=== PATIENT | male | born 1995 | race Caucasian/White ===

== ENCOUNTER 2020-07-21 08:40 | Outpatient (RCR) | payer OTHER, SELFPAY | END 2020-07-23 23:59 | LOC: EMPH 08:40 | PROVIDERS: Visit Provider Family Medicine Geriatric Medicine | DX: Z11.59 Encounter for screening for other viral diseases (principal) | CPT/HCPCS: 87635; U0003 ==

== ENCOUNTER 2020-08-21 08:28 | Outpatient (RCR) | payer OTHER, SELFPAY | END 2020-08-23 23:59 | LOC: EMPH 08:28 | PROVIDERS: Visit Provider Family Medicine Geriatric Medicine | DX: Z03.818 Encounter for observation for suspected exposure to other biological agents ruled out (principal) | CPT/HCPCS: 87426 ==

== ENCOUNTER 2020-09-01 11:20 | Outpatient (RCR) | payer OTHER, SELFPAY | END 2020-09-22 23:59 | LOC: EMPH 11:20 | PROVIDERS: Visit Provider Family Medicine Geriatric Medicine | DX: Z03.818 Encounter for observation for suspected exposure to other biological agents ruled out (principal) | CPT/HCPCS: 87426 ==

== ENCOUNTER → 2020-09-20 15:17 | Outpatient (REF) | payer OTHER, SELFPAY | LOC: EMPH 15:17 | PROVIDERS: Referring Provider Internal Medicine Infectious Disease; Visit Provider Internal Medicine Infectious Disease | DX: Z20.828 Contact with and (suspected) exposure to other viral communicable diseases (principal) | CPT/HCPCS: 87633; 87635; U0002 ==

== ENCOUNTER 2020-10-02 13:22 | Outpatient (RCR) | payer OTHER, SELFPAY | END 2020-10-23 23:59 | LOC: EMPH 13:22 | PROVIDERS: Referring Provider Family Medicine Geriatric Medicine; Visit Provider Family Medicine Geriatric Medicine | DX: Z03.818 Encounter for observation for suspected exposure to other biological agents ruled out (principal) | CPT/HCPCS: 87426 ==

== ENCOUNTER 2020-10-13 00:51 | Emergency (ER) | payer OTHER, SELFPAY ==
[2020-10-13 00:51] VITALS: BP 161/76; PULSE 117; RESP 15; TEMP 37.5; O2SAT 97; BMI 26.6
[2020-10-13 00:56] VITALS: BP 157/66; PULSE 115; RESP 17; TEMP 37.5; O2SAT 98
--- NOTE | 2020-10-13 01:19 | EKG12_ITS ---
Test Reason : CP Blood Pressure : / mmHG Vent. Rate : 109 BPM Atrial Rate : 109 BPM P-R Int : 134 ms QRS Dur : 106 ms QT Int : 336 ms P-R-T Axes : 050 030 023 degrees QTc Int : 452 ms Sinus tachycardia Incomplete right bundle branch block Confirmed by MARK EMERY, RADHA ([id number]), editorial assistant SEVERO MATUTE ([id number]) on 10/15/2020 11:10:47 AM Referred By: SHARAN Confirmed By:RADHA FLORES MD
--- NOTE | 2020-10-13 01:22 | ED.RN ---
no old ekgs on flile
--- NOTE | 2020-10-13 01:25 | ED.DCSUM_ITS ---
- ER Visit Summary Date of Service: 10/13/20 Chief Complaint: Chills, chest pain History of Present Illness: The patient is a 25 M with no primary care physician. 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 He ports that he felt fine when he came to work [employer] Approximately 10 PM he deve loped chills and myalgias. States that an hour later he developed a an aching left-sided chest pain is 3-10 severity currently and at worst. There is no change with exertion, movement, or deep breaths. Nothing seems to make this better either. He is also already taken Tylenol. Patient denies fever or cough. No abdominal pain, nausea, vomiting, or diarrhea. No dysuria or frequency. He reports he has a headache that is 2 out of 10 severity. Is has a history of similar headaches. Patient has no personal or family history of DVT. No recent travel. No calf pain or ankle swelling. Physical Examination: Vitals: 99.5, 161/76, 117, 15, 97% room air which is not hypoxic. General: Well-nourished and well-developed. Head: Normocephalic atraumatic. Neck: Supple, no lymphadenopathy. No JVD. Nontender. Cardiovascular: Regular rate and rhythm. No murmurs. Respiratory: No respiratory distress. Clear to auscultation bilaterally. Abdominal: Soft, nontender, nondistended, normal bowel sounds. No guarding, rebound, or peritoneal signs. Back: Nontender. Extremities: Nontender, no edema. Skin: Normal color, no rash. Neurologic: Alert and oriented ?3. Cranial nerves II through XII are intact. Normal strength and sensation. Psych: Normal affect. Test Results: EKG is sinus tachycardia at 109 with a T wave inversion in lead III and nonspecific ST changes. There is no old EKG for comparison. CBC shows segmented feels 75 lymphocytes 13. Chem-7 is normal. Troponin is negative. D- dimer is negative. TSH is 0.58. Respiratory panel is negative. COVID-19 RT- PCR is negative. Clinical Impression(s) from Imaging Studies Chest X-Ray 10/13/20 01:40 IMPRESSION: Mild right basilar airspace opacity, nonspecific but concerning for infection. at 0156 Reported and signed by: Su Potts MD Electronically Signed: Su Potts MD at 1:55 EST Tel , Service support , Emergency Department Course and Treatment: Patient had an IV placed. Is given liter normal saline. He is given Toradol IV. He is resting more comfortably. Treatment Plan: Had a prolonged discussion with the patient that this may represent a COVID-19 infection. He is instructed to quarantine. He will be placed on doxycycline due to the questionable right lower lobe infiltrate. Follow-up with his primary care physician in 10-14 days for another exam. Return to the emergency department for any worsening symptoms. Disposition: To home in improved and stable condition. Impression: 1. Atypical chest pain. 2. URI, possible COVID-19 infection. This note was generated with [employer] dictation software. It may contain incorrect words, spelling, and punctuation that were not noted in review of the chart prior to signing ED Disposition - Plan for ED Patient: Disposition: Home or Assisted Living Instructions: ED Upper Resp Infec Abx Tx Prescriptions: Doxycycline 100 mg PO BID #14 cap Prescription Printed Referrals: Doctor,Your [STAFF PHYSICIAN] - 10-14 Days if not better
[2020-10-13] MEDS: Ketorolac 15 MG/ML Vial IV (01:30)
[2020-10-13] MEDS: 0.9% Normal Saline 1,000 ML 999 ML IV (01:32)
--- NOTE | 2020-10-13 01:40 | RAD_ITS ---
HISTORY: body aches, chills, chest pain starting this evening. ADDITIONAL HISTORY: None provided. EXAMINATION/TECHNIQUE: XR Chest 1 View AP/PA Number of images including paperwork: 2 COMPARISON: None FINDINGS: LUNGS AND PLEURA: Small area of airspace opacity at the right base. No dense consolidation. No sizable pleural effusion. No pneumothorax. CARDIAC SILHOUETTE: Unremarkable. MEDIASTINUM AND [place]: Unremarkable. UPPER ABDOMEN: Unremarkable. SKELETON AND SOFT TISSUES: No acute skeletal findings. OTHER DEVICES AND HARDWARE: None. RAD/Chest 1 View (Portable) IMPRESSION: Mild right basilar airspace opacity, nonspecific but concerning for infection. at 0156 Reported and signed by: Su Potts MD Electronically Signed: Su Potts MD at 1:55 EST Tel , Service support ,
[2020-10-13 01:47] LABS: Absolute Lymphocyte Count 0.82 X10^3/uL (0.83-4.51); Absolute Neutrophil Count 4.6 X10^3/uL (2.0-7.7); Basophil# 0.04 X10^3/uL; Basophil% 0.6 % (0-1); Eosinophil# 0.08 X10^3/uL; Eosinophils% 1.3 % (0-5); Hematocrit 42.2 % (40-54); Hemoglobin 14.6 g/dL (13.0-16.5); Lymphocyte # 0.82 X10^3/ul (4.0); Lymphocyte % 13.3 % (19-41); Mean Corp Hgb Conc 34.6 g/dL (32-36); Mean Corpuscular Hgb 31.1 pg (27.0-32.0); Mean Platelet Vol. 12.4 fl (6.2-12.0); Monocyte# 0.62 X10^3/uL; Monocyte% 10.1 % (0-10); NRBC Flagged by Analyzer 0 % (0-5); Neutrophil # 4.59 X10^3/uL (2.7-7.7); Neutrophil % 74.5 % (47-70); Platelet Count 191 K/mm3 (150-450); RBC Distribution Width CV 11.7 % (11.6-14.6); Red Blood Count 4.69 M/mm3 (4.6-6.2); White Blood Count 6.2 K/mm3 (4.4-11.0)
[2020-10-13 01:56] VITALS: BP 111/59; PULSE 99; RESP 18; TEMP 37.4; O2SAT 99
[2020-10-13 01:58] LABS: D-Dimer Quantitative (DVT/PE) <= 0.27 FEU/ug/m (0.27-0.49)
[2020-10-13 02:10] LABS: Anion Gap 6 (5-15); BUN 14 mg/dL (7-18); BUN/Creat Ratio 12.5 RATIO (10-20); Chloride 103 mmol/L (98-107); Creatinine, Serum 1.12 mg/dL (0.70-1.30); EST Glomerular Filtration Rate 86 mL/min (>60); Est Glom Filt Rate - Afr Amer 104 mL/min (>60); Estimated Creatinine Clearance 99.24 ml/min; Glucose 98 mg/dL (74-106); Potassium 3.7 mmol/L (3.5-5.1); Sodium Level 136 mmol/L (136-145); Thyroid Stim Hormone (TSH) 0.58 uIU/mL (0.358-3.74)
[2020-10-13 02:24] VITALS: BP 115/57; PULSE 95; RESP 17; TEMP 37.1; O2SAT 97
== END 2020-10-13 02:37 | disposition home or self-care (01) ==
LOC: ED 01:39
PROVIDERS: Emergency Provider Emergency Medicine
DX: R07.89 Other chest pain (principal); J06.9 Acute upper respiratory infection, unspecified; J45.909 Unspecified asthma, uncomplicated
CPT/HCPCS: 71045; 80048; 84443; 84484; 85025; 85379; 87633; 87635; 93005; 96361; 96374; 99284; J7030; A4216; U0002

== ENCOUNTER → 2020-10-20 10:14 | Outpatient (CLI) | payer OTHER, SELFPAY ==
[2020-10-20 09:55] VITALS: BMI 28.3
--- NOTE | 2020-10-20 10:17 | RAD_ITS ---
STUDY: X-RAY CHEST REASON FOR EXAM: Male, 25 years old. COUGH, RIGHT SIDED PAIN ON INSPIRATION -- HAS BEEN ON ANTIBIOTICS x1 WEEK TECHNIQUE: Frontal and lateral views of the chest. COMPARISON: None. FINDINGS: Ill-defined airspace opacities are seen in the right lower lobe suggesting pneumonia. There is no demonstrated pleural abnormality. Normal size heart. Normal mediastinum and jarrett. Normal visualized pulmonary arteries. Normal visualized aortic arch and descending thoracic aorta. Normal visualized thoracic spine. Normal visualized ribs, clavicles, and shoulders. There is no demonstrated abnormality of the visualized soft tissue structures of the upper abdomen. RAD/Chest PA and Lateral IMPRESSION: Right lower lobe pneumonia. Electronically Signed: Lg Lara, at 11:16 EST Tel , Service support ,
== END ==
PROVIDERS: Referring Provider Physician Assistant Surgical; Visit Provider Physician Assistant Surgical
DX: Z20.828 Contact with and (suspected) exposure to other viral communicable diseases (principal)
CPT/HCPCS: 71046

== ENCOUNTER 2021-04-21 19:50 | Outpatient (RCR) | payer OTHER, SELFPAY ==
[2020-10-20 09:55] VITALS: BMI 28.3
== END 2021-04-22 23:59 ==
LOC: EMPH 19:50
PROVIDERS: Visit Provider Family Medicine Geriatric Medicine
DX: Z03.818 Encounter for observation for suspected exposure to other biological agents ruled out (principal)
CPT/HCPCS: 87426

== ENCOUNTER 2021-05-22 08:56 | Outpatient (RCR) | payer OTHER, SELFPAY ==
[2020-10-20 09:55] VITALS: BMI 28.3
== END 2021-05-23 23:59 ==
LOC: EMPH 08:56
PROVIDERS: Referring Provider Family Medicine Geriatric Medicine; Visit Provider Family Medicine Geriatric Medicine
DX: Z03.818 Encounter for observation for suspected exposure to other biological agents ruled out (principal)
CPT/HCPCS: 87426

== ENCOUNTER 2021-06-03 20:08 | Outpatient (RCR) | payer OTHER, SELFPAY ==
[2020-10-20 09:55] VITALS: BMI 28.3
== END 2021-06-23 23:59 ==
LOC: EMPH 20:08
PROVIDERS: Referring Provider Family Medicine Geriatric Medicine; Visit Provider Family Medicine Geriatric Medicine
DX: Z03.818 Encounter for observation for suspected exposure to other biological agents ruled out (principal)
CPT/HCPCS: 87426

== ENCOUNTER 2021-07-06 09:40 | Outpatient (RCR) | payer OTHER, SELFPAY ==
[2021-06-24 00:38] VITALS: BMI 28.3
== END 2021-07-23 23:59 ==
LOC: EMPH 09:40
PROVIDERS: Referring Provider Family Medicine Geriatric Medicine; Visit Provider Family Medicine Geriatric Medicine
DX: Z03.818 Encounter for observation for suspected exposure to other biological agents ruled out (principal)
CPT/HCPCS: 87426

== ENCOUNTER 2021-08-31 18:32 | Outpatient (RCR) | payer OTHER, SELFPAY | END 2021-09-22 23:59 | LOC: EMPH 18:32 | PROVIDERS: Visit Provider Family Medicine Geriatric Medicine | DX: Z03.818 Encounter for observation for suspected exposure to other biological agents ruled out (principal) | CPT/HCPCS: 87426 ==